=== PATIENT | male | born 1980 | race Caucasian/White ===

== ENCOUNTER 2023-09-08 10:07 | Outpatient (CLI) | payer BC, SELFPAY ==
--- NOTE | 2023-09-08 10:18 | ECG_ITS ---
APPROVED REPORT Exam: Resting ECG HR:81 bpm ECG Measurements Heart Rate 81 AXES ND 178 P 30 QRSd 96 QRS 36 QT 375 T 29 QTc 412 Conclusion SINUS RHYTHM NORMAL ECG UNCONFIRMED REPORT Electronically signed by : Crispin Abdul MD 09/08/2023 12:06:10
[2023-09-08 10:22] LABS: Microscopic, Urine URINE MICROSCOPIC (MICROSCOPIC)
[2023-09-08 10:43] LABS: Appearance,Urine CLEAR (Clear); Bilirubin,Urine Negative (Negative); Blood, Urine Negative (Negative); Color,Urine YELLOW (Yellow); Glucose,Urine (UA) Negative (Negative); Ketones,Urine Negative (Negative); Leukocyte Esterase,Urine Negative (Negative); Nitrate,Urine Negative (Negative); Protein,Urine Negative (Negative); Urobilinogen,Urine 0.2 EU/dl (0.2)
[2023-09-08 10:48] LABS: Basophils # 0.1 K/mm3 (0-0.2); Basophils % 1.2 % (0.1-2.0); Eosinophils # 0.1 K/mm3 (0.0-0.4); Hematocrit 44.7 % (42.0-52.0); Hemoglobin 15.9 g/dL (14.1-18.0); Lymphocytes # 2.7 K/mm3 (0.7-4.5); Lymphocytes % 34.8 % (10-50); Mean Corpuscular HGB Conc 35.5 g/dL (31.8-35.4); Mean Corpuscular Hemoglobin 34.4 pg (27.0-31.2); Mean Corpuscular Volume 96.9 fl (80-94); Monocytes # 0.3 K/mm3 (0.1-1.0); Monocytes % 4.4 % (1.7-9.3); Neutrophils # 4.5 K/mm3 (1.8-7.8); Neutrophils % 58.5 % (37.0-80.0); Platelet Count 246 K/mm3 (142-424); Red Blood Count 4.61 M/mm3 (4.60-6.20); Red Cell Distribution Width 14.3 % (11.5-17.5); White Blood Count 7.7 K/mm3 (4.8-10.8)
[2023-09-08 10:55] LABS: Bacteria,Urine Trace /lpf; Squamous Epithelial Cell,Urine Occasional #/hpf (0-5)
[2023-09-08 11:21] LABS: Chloride 104 mmol/L (98-107); Potassium 4.3 mmoL/L (3.5-5.1); Sodium 137 mmol/L (136-145)
[2023-09-08 11:24] LABS: Blood Urea Nitrogen 15 mg/dl (9-20); Estimated Glomerular Filt Rate 91 ml/min (>60); GFR (African American) 110 ML/MIN (>60)
[2023-09-08 11:25] LABS: Anion Gap 12.3 mEq/L (5-15); Calcium 9.3 mg/dl (8.4-10.2); Carbon Dioxide 25 mmol/L (22.0-30.0); Glucose 100 mg/dl (74-100)
== END 2023-09-08 23:59 ==
LOC: LAB 10:10
PROVIDERS: PCP Family Medicine; Visit Provider Surgery
DX: K42.9 Umbilical hernia without obstruction or gangrene (principal)
CPT/HCPCS: 36415; 80048; 81001; 85025; 93005

== ENCOUNTER 2023-09-14 06:48 | Day surgery (SDC) | payer BC, SELFPAY ==
[2023-09-11 13:23] VITALS: BMI 40.6
[2023-09-14] VITALS (12 sets, daily range): BP systolic 99–141; BP diastolic 54–80; PULSE 67–99; RESP 10–18; TEMP 36.3–43; O2SAT 92–99
[2023-09-14] MEDS: LACTATED RINGERS 1000ML 1,000 ML 25 ML IV (07:16)
[2023-09-14] MEDS: CEFAZOLIN SODIUM 2 GM in 0.9 % SODIUM CHLORIDE 100 ML IV (08:44)
--- NOTE | 2023-09-14 08:57 | P.PNANES_ITS ---
[facility] Disclaimer: The information contained in this section may have been updated after the patient was seen, as this information can be updated by other users. Medical History History of gastroesophageal reflux (GERD) Hypertension Kidney stone Family History Other Heart attack Social History Smoking Status: Current every day smoker alcohol intake: current substance use type: denies use current occupational status: employed Travel in the last 8 weeks: None [facility] Anesthesia Checklist Patient Identification Patient Identification: Arm Band and Verbal (Name & ) Structural Data Admitted From: Home Planned Operative Procedure/s: Umbilical hernia repair Consent for Planned Operative Procedure(s) Verified: Yes NPO Status Verified Time NPO: 00:00 Additional verifications Anesthesia Reactions: No Airway Assessment Mallampati Score:: Class III C-Spine Mobility Assessed: Yes TMJ Mobility Assessed: Yes Dentition: Dentures-poor fitting Neurological Assessment Level of Consciousness: Awake Hx Seizures: No Numbness or tingling in extremities: No Anesthesia Plan Anesthesia Risk discussed: Yes Anesthesia Plan: Verified ASA Class: II Anesthesia Type: General
[2023-09-14] MEDS: LIDOCAINE 1% 20ML MDV 20 ML (09:10)
--- NOTE | 2023-09-14 09:56 | P.OP_ITS ---
Date of procedure: 09/14/23 Pre-op Diagnosis:: Umbilical hernia with incarcerated omentum versus preperitoneal fat Post-op Diagnosis:: Umbilical hernia with incarcerated omentum Procedure performed:: Open umbilical hernia repair with 8 cm Ventralex mesh Surgeon:: nAtwon Lilly MD MACHINERY CLEANER:: Debra Keller Anesthesia: GETA Estimated blood loss (mL): 10 Operative findings:: 2.5 cm defect 8 cm Ventralex mesh utilized for repair Operative note:: After informed consent was obtained the patient was taken to the operating room and placed in the supine position. General anesthesia was induced and his abdomen was prepped and draped in a sterile fashion. After infiltration with local anesthetic a supraumbilical incision was made. A combination of blunt dissection, sharp dissection, and electrocautery was utilized to transect through the deep subcutaneous tissue. Dissection at the margin of the defect was completed. A hernia sac was resected and passed off for pathologic evaluation. Incarcerated omentum was noted. A small portion of the incarcerated omentum was resected utilizing electrocautery. No active bleeding or sign of injury was noted. The remaining omentum was returned to the abdominal cavity without difficulty. An 8 cm Ventralex mesh was secured in position with interrupted Ethibond. A primary closure with 0 Ethibond over the mesh repair was then completed. The wound was thoroughly irrigated. The umbilical stump was reapproximated with interrupted 2-0 Vicryl. Skin was then closed with interrupted 4-0 Monocryl in a mattress fashion to facilitate hemostasis. Dressings were applied and the patient was transferred to recovery in stable condition. Condition: stable Disposition: PACU Specimens:: Hernia sac Complications:: No immediate
--- NOTE | 2023-09-14 10:06 | P.PNANES_ITS ---
[facility] Anesthesia Record Part I Anesthesia Record I Intake, IV Amount: 900 Hydration: Adequate Estimated blood loss (mL): 10 Urine output (mL): 0 Blood Pressure: 141/73 SaO2: 92 Pulse Rate: 99 Airway Patency: Patent Respiratory Rate: 13 Temperature: 97.5 F Patient is:: Awake Stable to PACU at:: 10:05
[2023-09-14] MEDS: HYDROMORPHONE 2MG/ML SYRINGE 0.5 MG IV ×2 (10:17→10:25)
--- NOTE | 2023-09-15 08:56 | P.PNANES_ITS ---
[facility] Anesthesia Record Part II Anesthesia Record Part II Discharge Time: 10:55 Destination: Surgical Day Care (OP Surgery) PACU nurse assessment reviewed?: Yes Patient Condition:: Good Anesthesia Complications:: None Swallowing reflex intact?: Yes Airway Patency: Patent Cyanosis?: No Blood Pressure: 107/69 SaO2: 94 Respiratory Rate: 17 Pulse Rate: 72 Temperature: 97.8 F Mental Status: Alert & Oriented Pain level:: 3 Nausea and/or vomitting:: None Intake, IV Amount: 0 Hydration: Adequate
[2023-09-15 08:57] VITALS: BP 107/69; PULSE 72; RESP 17; TEMP 36.6; O2SAT 94
== END 2023-09-14 11:29 | disposition home or self-care (01) ==
PROVIDERS: PCP Family Medicine; Visit Provider Surgery
PROC: (CPT 49592; principal; 2023-09-14 08:30)
DX: K42.0 Umbilical hernia with obstruction, without gangrene (principal)
CPT/HCPCS: 49592; 96374; C1781; J0131; J2405